=== PATIENT | female | born 1960 | race Caucasian/White ===

== ENCOUNTER 2017-02-04 16:48 | Emergency (ER) | payer BC | END 2017-02-04 19:09 | disposition home or self-care (01) | LOC: D.ER 16:48 | DX: S82.831A Other fracture of upper and lower end of right fibula, initial encounter for closed fracture (principal); W19.XXXA Unspecified fall, initial encounter; Y93.89 Activity, other specified; Y92.019 Unspecified place in single-family (private) house as the place of occurrence of the external cause; M79.672 Pain in left foot; M79.671 Pain in right foot; I10 Essential (primary) hypertension ==

== ENCOUNTER 2017-02-09 05:25 | Day surgery (SDC) | payer BC ==
[2017-02-08 15:30] LABS: HEMATOCRIT 31.8 % (36.0-48.0); MCH 29.3 pg (26.0-34.0); MCHC 34.6 g/dL (31.0-37.0); MCV 84.8 fL (80.0-100.0); MEAN PLATELET VOLUME 8.7 fL (7.4-10.4); RBC 3.75 10x6/uL (4.00-5.40); RDW 12.6 % (11.5-14.5); WBC 6.4 10x3/uL (4.8-10.8)
[2017-02-08 16:00] LABS: CALC OSMOLALITY 277 mosm/kg (275-300); CALCIUM 9.3 mg/dL (8.5-10.1); CARBON DIOXIDE 35.1 mmol/L (21.0-32.0); CHLORIDE - SERUM 99 mmol/L (98-107); CREATININE - SERUM 0.7 mg/dL (0.6-1.3); GLUCOSE 103 mg/dL (74-106); POTASSIUM - SERUM 3.4 mmol/L (3.5-5.1); SODIUM 140 mmol/L (136-145); UREA NITROGEN 10 mg/dL (7-18); eGFR NON AFRICAN AMERICAN > 90 mL/min (90-120)
[~2017-02-09] VITALS: Ht 162.6 cm; Wt 97.5 kg
--- NOTE | ~2017-02-09 | OP ---
PATIENT NAME: IVETH GRAY MEDICAL RECORD: [id number] :64 LOCATION:[facility] ADMISSION DATE: SURGEON: DALLAS COOLEY DO DATE OF OPERATION: 02/09/2017 PROCEDURE PERFORMED: Right ankle open reduction and internal fixation of the distal fibula as well as syndesmotic fixation. PREOPERATIVE DIAGNOSIS: Right ankle fracture. POSTOPERATIVE DIAGNOSIS: Right ankle fracture. INDICATIONS: Ms. Gray is a 57-year-old female who fell on her steps Sunday and went to the ER and suffered a fractured ankle in the right and an ankle sprain on the left. She was seen in the office. Ankle was stressed at that time and seen to open up medially. She also had a posterior malleolus fracture as well as a distal fibula fracture due to the injury and bimalleolar equivalent with opening up medially and with the posterior fracture, decided to undergo the procedure ORIF as well as syndesmotic fixation. Once this was done, she was consented in the office and she was seen here in the hospital for the surgery. SURGEON: Dallas Cooley DO DESCRIPTION OF PROCEDURE: The patient was given a block in the preoperative area and then taken to the operative suite by anesthesia, placed in supine position, given general anesthetic, 2 grams Ancef. Timeout was performed. Everyone was in agreement that the right lower extremity was the correct extremity and was correct patient, the correct procedure was being done. Once this was done, the right lower extremity was prepped and draped in sterile fashion. A bump was placed under the right hip. An incision was marked out in the posterior fibula and incision made with 10 blade through the skin and careful dissection was made down to the fibula itself. Fracture was identified and plate was then placed and confirmed on x-ray. The plate was secured into place with whirlybird and distal fixation was performed, first 4 locking screws distally was put in and then 2 proximal to the fracture. Once this was done, the ankle was stressed and not seen open too much medially; however, due to the posterior mallet fracture, we decided that syndesmotic TightRope would help with fracture fixation and it was placed through the plate, through the fibula and both cortices of the tibia. A needle was put through the skin and the button flipped on the medial side of the tibia and the TightRope was toggled down to tighten position. Final x-rays were then taken and ankle stress did not seem to move at all. The fracture was well fixed and a lateral was taken and seen to be in good position. The tourniquet was then let down. The extremity was exsanguinated prior to starting with Esmarch and tourniquet was inflated to 350 mmHg. It was let down at 27 minutes at this point in the procedure. The wound was then irrigated copiously and the skin was closed, deep tissue was not able to be closed, but the skin was closed using 2-0 Vicryl in inverted interrupted fashion and the skin was then closed with horizontal mattresses using 3-0 nylon. Once this was done, 20mL of 0.5% Marcaine with epinephrine was injected around the site and Adaptic, 4 x4's, and ABDs was placed on the heel. The patient was wrapped with Webril and posterior splint was placed on the patient and secured with Juaquin wrap. The patient was awakened and taken to recovery in stable condition. Blood loss was minimal. TRANSINT:[id number] Voice Confirmation ID: [id number] DOCUMENT ID: [id number] OPERATIVE REPORT [id number] IVETH GRAY MICHAEL D, DO CC: [id number] DICTATION DATE: 02/09/17 1140 MUNITIONS HANDLER: 02/09/17 1249 [facility] [address] [place] [address]
[~2017-02-09 05:25] MED LIST: CYCLOBENZAPRINE10 MG PO; EFFEXOR XR150 MG PO; FERROUS SULFAT325 MG PO; HYDROCHLOROTH12.5 M1 PO; K-TAB10 MEQ PO; LOTENSIN40 MG PO; NORCO 7.5/325 T1 TA1 PO; ZOCOR20 MG PO
[2017-02-09 08:22] VITALS: BP 167/90; Ht 162.6 cm; Wt 97.5 kg
--- NOTE | 2017-02-09 08:57 | NUR ---
CALLED IVONNE IN LAB NEEDS TO DO LAB POTASSIUM AND REPORTES TO ANESTHESIA NEEDS IV.
[2017-02-09] MEDS ORDERED: PERCOCET 5-3251 TAB PO (11:31)
[2017-02-09] MEDS ORDERED: DURICEF500 MG PO (11:31)
[2017-02-09] MEDS ORDERED: ASPIRIN325 MG PO (11:58)
--- NOTE | 2017-02-09 16:45 | NUR ---
1410--IV DC'D, PT UP TO DRESS. SABA KUMAR 9100--DISCHARGE INSTRUCTIONS GIVEN, PT VERBALIZES UNDERSTANDING. PT OFF UNIT VIA WC. SABA KUMAR
== END 2017-02-09 14:40 | disposition home or self-care (01) ==
LOC: D.OPS 05:25 → D.PAN 08:15 → D.OPS 09:15
PROVIDERS: Anesthesiology
DX: S82.64XA Nondisplaced fracture of lateral malleolus of right fibula, initial encounter for closed fracture (principal); S93.492A Sprain of other ligament of left ankle, initial encounter; I10 Essential (primary) hypertension; G47.30 Sleep apnea, unspecified; Z01.812 Encounter for preprocedural laboratory examination

== ENCOUNTER → 2017-03-27 13:59 | Outpatient (CLI) | payer BC ==
[2017-02-09 08:22] VITALS: BMI 37.0
[~2017-03-27 13:59] MED LIST changes: +ASPIRIN325 MG PO; +DURICEF500 MG PO; +PERCOCET 5-3251 TAB PO
== END | disposition home or self-care (01) ==
LOC: D.MAMMO 10:15
DX: Z12.31 Encounter for screening mammogram for malignant neoplasm of breast (principal)

== ENCOUNTER → 2018-12-16 12:45 | Outpatient (CLI) | payer BC ==
[2017-02-09 08:22] VITALS: BMI 37.0
== END | disposition home or self-care (01) ==
LOC: D.HCCARDIO 12:45
PROVIDERS: ATTEND Internal Medicine Cardiovascular Disease
DX: R00.0 Tachycardia, unspecified (principal); I10 Essential (primary) hypertension

== ENCOUNTER → 2018-12-19 09:29 | Outpatient (CLI) | payer BC ==
[2017-02-09 08:22] VITALS: BMI 37.0
== END | disposition home or self-care (01) ==
LOC: D.HCCARDIO 09:29
PROVIDERS: ATTEND Internal Medicine Cardiovascular Disease
DX: R00.2 Palpitations (principal)

== ENCOUNTER 2019-05-30 09:00 | Outpatient (CLI) | payer BC ==
[2017-02-09 08:22] VITALS: BMI 37.0
== END 2019-05-30 10:00 | disposition home or self-care (01) ==
LOC: D.MAMMO 09:00
PROVIDERS: ATTEND Family Medicine
DX: Z12.31 Encounter for screening mammogram for malignant neoplasm of breast (principal)

== ENCOUNTER 2020-07-18 15:15 | Emergency (ER) | payer BC ==
[~2020-07-18] VITALS: Ht 162.6 cm; Wt 97.7 kg
[2020-07-18 15:33] VITALS: Ht 162.6 cm; Wt 97.7 kg
[2020-07-18] MEDS ORDERED: ASPIRIN325 MG PO (15:34)
[2020-07-18 16:03] LABS: BASOPHILS 0.6 % (0-2); EOSINOPHILS 3.2 % (0-7); HEMOGLOBIN 11.1 g/dL (12-16); IMMATURE GRANULOCYTES 0.4 % (0-5); LYMPHOCYTE ABS# 1.83 10x3/uL (1.18-3.74); LYMPHOCYTES 23.7 % (15-50); MCH 28.5 pg (26.0-34.0); MCHC 33.6 g/dL (31.0-37.0); MCV 84.6 fL (80.0-100.0); MONOCYTES 10.1 % (2-11); NEUTROPHIL ABS# 4.77 10x3/uL (1.56-6.13); PLATELET COUNT 306 10x3/uL (130-400); WBC 7.7 10x3/uL (4.8-10.8)
[2020-07-18 16:11] LABS: BILIRUBIN NEGATIVE (NEGATIVE); KETONE NEGATIVE (NEGATIVE); NITRITE NEGATIVE (NEGATIVE); UROBILINOGEN NORMAL mg/dL (< 2)
[2020-07-18 16:13] LABS: BACTERIA FEW HPF (NONE SEEN); SQUAMOUS EPITHELIAL 0-5 HPF (0-4)
[2020-07-18 16:18] LABS: APTT 32.4 SECONDS (22.8-39.4); INR 1.11 (0.85-1.17); PROTIME 13.2 SECONDS (11.6-15.0)
[2020-07-18 16:41] LABS: ALBUMIN 4.4 g/dL (3.4-5.0); ANION GAP 7.1 mmol/L (8-16); BILIRUBIN - TOTAL 0.29 mg/dL (0.2-1.3); CALCIUM 9.5 mg/dL (8.5-10.1); CARBON DIOXIDE 35.8 mmol/L (21.0-32.0); CREATININE - SERUM 0.9 mg/dL (0.6-1.3); PROTEIN - SERUM 7.8 g/dL (6.4-8.2)
[2020-07-18 16:44] LABS: POTASSIUM - SERUM 2.9 mmol/L (3.5-5.1)
[2020-07-18] MEDS ORDERED: IBUPROFEN800 MG PO (18:04)
[2020-07-18] MEDS ORDERED: CYCLOBENZAPRINE10 MG PO (18:04)
[2020-07-18] MEDS ORDERED: CEPHALEXIN500 M1 PO (18:04)
[2020-07-18] MEDS ORDERED: MACROBID100 MG PO (18:04)
[2020-07-18] MEDS ORDERED: ACETAMINOPHEN500 M1 PO (18:04)
[2020-07-18 18:16] VITALS: BP 142/78
== END 2020-07-18 18:17 | disposition home or self-care (01) ==
LOC: D.ER 15:15
PROVIDERS: Family Medicine
DX: R51.9 Headache, unspecified (principal); E87.6 Hypokalemia; M25.512 Pain in left shoulder; M79.10 Myalgia, unspecified site; M54.2 Cervicalgia; N39.0 Urinary tract infection, site not specified; I10 Essential (primary) hypertension